=== PATIENT | male | born 1970 | race Caucasian/White ===

== ENCOUNTER 2016-07-30 00:30 | Inpatient (IN) | payer MEDICAID ==
[~2016-07-30] VITALS: Ht 188 cm; Wt 138.3 kg
[2016-07-30] VITALS (8 sets, daily range): BP systolic 151–175; BP diastolic 87–127; PULSE 78–110; RESP 16–25; TEMP 97.4–98.9; O2SAT 92–96
[2016-07-30] MEDS ORDERED: ASPIRIN 81 MG TAB.CHEW PO ONE (01:00)
[2016-07-30] MEDS ORDERED: SERT50TA12 PO (01:15)
[2016-07-30] MEDS ORDERED: METO50TA3 PO (01:15)
[2016-07-30] MEDS ORDERED: ATOR40TA68 PO (01:15)
[2016-07-30] MEDS ORDERED: HYDR-1189 PO (01:15)
[2016-07-30] MEDS ORDERED: CHOL100028 PO (01:15)
[2016-07-30] MEDS ORDERED: APIX5TAB PO (01:15)
[2016-07-30] MEDS ORDERED: OMEP40CA33 PO (01:15)
[2016-07-30 01:16] LABS: BASOPHILS # (AUTO) 0.1 K/uL (0.0-0.2); BASOPHILS % (AUTO) 0.6 % (0.0-2.0); EOSINOPHILS # (AUTO) 0.2 K/uL (0.0-0.4); EOSINOPHILS % (AUTO) 1.9 % (0.0-4.0); HEMATOCRIT 47.3 % (36-54); HEMOGLOBIN 15.8 g/dL (14.0-18.0); LYMPHOCYTES # (AUTO) 2.6 K/uL (1.0-5.5); LYMPHOCYTES % (AUTO) 23.4 % (20.5-51.5); MEAN CORPUSCULAR HEMOGLOBIN 28 pg (27-31); MEAN CORPUSCULAR HGB CONC 33 % (32-36); MEAN CORPUSCULAR VOLUME 84 fL (79.0-98.0); MONOCYTES # (AUTO) 0.7 K/uL (0.0-1.0); MONOCYTES % (AUTO) 6.6 % (1.7-9.3); NEUTROPHILS # (AUTO) 7.3 K/uL (1.8-7.7); NEUTROPHILS % (AUTO) 67.5 % (40.0-70.0); PLATELET COUNT (AUTO) 278 K/uL (130-430); RED BLOOD CELL COUNT(AUTO) 5.61 MIL/uL (4.2-6.2); RED CELL DISTRIBUTION WIDTH 13.5 % (9.0-15.0); WHITE BLOOD COUNT (AUTO) 10.9 K/uL (4.8-10.8)
[2016-07-30 01:20] LABS: CREATININE 1.2 mg/dL (0.55-1.30); POTASSIUM 3.4 mmol/L (3.5-5.1)
[2016-07-30 01:26] LABS: TOTAL BILIRUBIN 0.6 mg/dL (0.0-1.0)
[2016-07-30 01:45] LABS: INR 4.2 (0.80-1.20); PROTHROMBIN TIME 47.4 SECS (9.5-12.5)
[2016-07-30] MEDS ORDERED: FUROSEMIDE 20 MG TABLET PO ONE (02:15)
[2016-07-30] MEDS ORDERED: AZITHROMYCIN 500 MG in NS 250 ML IV ONE (02:15)
[2016-07-30] MEDS ORDERED: cefTRIAXone 1 GM in D5W 50 ML IV ONE (02:15)
[2016-07-30] MEDS ORDERED: LEVOFLOXACIN 500 MG/D5W 100 ML IV ONE ×2 (02:30→03:54)
[2016-07-30] MEDS ORDERED: cefTRIAXone 1 GM VIAL ONE (02:40)
[2016-07-30] MEDS ORDERED: AZITHROMYCIN 500 MG/VIAL (ZITHROMAX) IV ONE (02:40)
[2016-07-30] MEDS: ALBUTEROL SULFATE 0.083% 2.5 MG/3 ML VIAL.NEB INH SCH ×6 (06:08→23:00)
[2016-07-30] MEDS ORDERED: CHOLECALCIFEROL (VITAMIN D3) 2,000 UNIT TABLET PO ONE (10:15)
[2016-07-30] MEDS ORDERED: SERTRALINE HCL 50 MG TABLET PO ONE (10:15)
[2016-07-30] MEDS ORDERED: APIXABAN 2.5 MG TABLET PO ONE (10:15)
[2016-07-30] MEDS ORDERED: ATORVASTATIN 20 MG TABLET PO ONE (10:15)
[2016-07-30] MEDS ORDERED: METOPROLOL TARTRATE 50 MG TABLET PO ONE (10:15)
[2016-07-30] MEDS ORDERED: amLODIPine BESYLATE 10 MG TABLET PO ONE (14:00)
[2016-07-30] MEDS: cloNIDine HCL 0.1 MG TABLET PO PRN (17:39)
[2016-07-30] MEDS: APIXABAN 2.5 MG TABLET PO SCH (21:12)
[2016-07-30] MEDS: LEVOFLOXACIN 500 MG/D5W 100 ML IV SCH (21:13)
[2016-07-31] VITALS (8 sets, daily range): BP systolic 136–163; BP diastolic 88–123; PULSE 66–109; RESP 17–18; TEMP 96.9–98.7; O2SAT 94–100
[2016-07-31] MEDS: cloNIDine HCL 0.1 MG TABLET PO PRN ×2 (01:44→10:39)
[2016-07-31] MEDS: ALBUTEROL SULFATE 0.083% 2.5 MG/3 ML VIAL.NEB INH SCH ×6 (03:00→22:55)
[2016-07-31 07:46] LABS: BASOPHILS % (AUTO) 0.3 % (0.0-2.0); EOSINOPHILS # (AUTO) 0.2 K/uL (0.0-0.4); EOSINOPHILS % (AUTO) 1.8 % (0.0-4.0); HEMATOCRIT 40.4 % (36-54); HEMOGLOBIN 13.7 g/dL (14.0-18.0); LYMPHOCYTES # (AUTO) 1.8 K/uL (1.0-5.5); LYMPHOCYTES % (AUTO) 21.1 % (20.5-51.5); MEAN CORPUSCULAR HEMOGLOBIN 29 pg (27-31); MEAN CORPUSCULAR HGB CONC 34 % (32-36); MEAN CORPUSCULAR VOLUME 85 fL (79.0-98.0); MONOCYTES # (AUTO) 0.8 K/uL (0.0-1.0); MONOCYTES % (AUTO) 9.6 % (1.7-9.3); NEUTROPHILS # (AUTO) 5.8 K/uL (1.8-7.7); NEUTROPHILS % (AUTO) 67.2 % (40.0-70.0); PLATELET COUNT (AUTO) 191 K/uL (130-430); RED BLOOD CELL COUNT(AUTO) 4.73 MIL/uL (4.2-6.2); RED CELL DISTRIBUTION WIDTH 13.5 % (9.0-15.0); WHITE BLOOD COUNT (AUTO) 8.6 K/uL (4.8-10.8)
[2016-07-31 08:54] LABS: CALCIUM 8.8 mg/dL (8.4-11.0); CREATININE 1.04 mg/dL (0.55-1.30); THYROID STIMULATING HORMONE 0.52 uIu/mL (0.36-3.74)
[2016-07-31] MEDS ORDERED: METOPROLOL TARTRATE 50 MG TABLET PO SCH ×2 (09:00→21:00)
[2016-07-31] MEDS: CHOLECALCIFEROL (VITAMIN D3) 2,000 UNIT TABLET PO SCH (10:32)
[2016-07-31] MEDS: APIXABAN 2.5 MG TABLET PO SCH ×2 (10:32→20:37)
[2016-07-31] MEDS: amLODIPine BESYLATE 10 MG TABLET PO SCH (10:34)
[2016-07-31] MEDS: SERTRALINE HCL 50 MG TABLET PO SCH (10:34)
[2016-07-31] MEDS: ATORVASTATIN 20 MG TABLET PO SCH (10:34)
[2016-07-31] MEDS: OMEPRAZOLE 20 MG CAPSULE.DR (PriLOSEC) PO SCH (10:35)
[2016-07-31] MEDS ORDERED: POTASSIUM CHLORIDE 20 MEQ TAB.PRT.SR PO ONE (13:45)
[2016-07-31] MEDS ORDERED: PHYTONADIONE 5 MG TABLET PO ONE (13:45)
[2016-07-31] MEDS ORDERED: FUROSEMIDE 40 MG TABLET PO ONE (13:45)
[2016-07-31] MEDS: METOPROLOL TARTRATE 50 MG TABLET PO SCH (20:34)
[2016-07-31] MEDS: LEVOFLOXACIN 500 MG/D5W 100 ML IV SCH (21:39)
[2016-07-31] MEDS ORDERED: ACETAMINOPHEN 325 MG TABLET PO PRN (23:30)
[2016-08-01 00:12] VITALS: BP 139/89; PULSE 82; RESP 20; TEMP 97.6; O2SAT 96
[2016-08-01] MEDS: ALBUTEROL SULFATE 0.083% 2.5 MG/3 ML VIAL.NEB INH SCH ×3 (03:00→11:00)
[2016-08-01 04:08] VITALS: BP 124/83; PULSE 69; RESP 20; TEMP 97.7; O2SAT 98
[2016-08-01 07:20] LABS: INR 1.8 (0.80-1.20); PROTHROMBIN TIME 20.1 SECS (9.5-12.5)
[2016-08-01 08:06] VITALS: BP 138/96; PULSE 90; RESP 16; TEMP 97.5; O2SAT 97
[2016-08-01 08:10] VITALS: BP 138/96; PULSE 90
[2016-08-01] MEDS: APIXABAN 2.5 MG TABLET PO SCH (08:48)
[2016-08-01] MEDS: ATORVASTATIN 20 MG TABLET PO SCH (08:52)
[2016-08-01] MEDS: METOPROLOL TARTRATE 50 MG TABLET PO SCH (08:54)
[2016-08-01] MEDS: OMEPRAZOLE 20 MG CAPSULE.DR (PriLOSEC) PO SCH (08:55)
[2016-08-01] MEDS: amLODIPine BESYLATE 10 MG TABLET PO SCH (08:55)
[2016-08-01] MEDS: CHOLECALCIFEROL (VITAMIN D3) 2,000 UNIT TABLET PO SCH (08:56)
[2016-08-01] MEDS: SERTRALINE HCL 50 MG TABLET PO SCH (08:56)
[2016-08-01] MEDS ORDERED: FUROSEMIDE 40 MG TABLET PO SCH (09:00)
[2016-08-01] MEDS ORDERED: POTASSIUM CHLORIDE 20 MEQ/PKT PACKET PO SCH (09:00)
[2016-08-01 11:01] VITALS: BP 137/73; PULSE 78; RESP 16; TEMP 97.1; O2SAT 95
[2016-08-01] MEDS ORDERED: LEVO500T20 PO (12:16)
[2016-08-01] MEDS ORDERED: FURO-150 PO (12:16)
[2016-08-01] MEDS ORDERED: POTA-118 PO (12:18)
[2016-08-01] MEDS ORDERED: METO-442 PO (12:19)
[2016-08-01] MEDS ORDERED: NOR10 PO (12:19)
[2016-08-01] MEDS ORDERED: AMLO2.5T2 PO (12:23)
[2016-08-01] MEDS ORDERED: POTASSIUM CHLORIDE 20 MEQ TAB.PRT.SR PO ONE (13:15)
[2016-08-01] MEDS ORDERED: LACTOBACILLUS RHAMNOSUS GG 1 CAP CAPSULE PO SCH (21:00)
[2016-08-02] MEDS ORDERED: POTASSIUM CHLORIDE 20 MEQ TAB.PRT.SR PO SCH (09:00)
== END 2016-08-01 12:50 | disposition home or self-care (01) | DRG 201 ==
LOC: SED 00:30 → EDBD 00:30 → STU 02:16
PROVIDERS: ADMIT Internal Medicine Hospice and Palliative Medicine; ATTEND Internal Medicine Hospice and Palliative Medicine
DX: I48.0 Paroxysmal atrial fibrillation (principal); J18.9 Pneumonia, unspecified organism; D68.69 Other thrombophilia; I11.0 Hypertensive heart disease with heart failure; I50.40 Unspecified combined systolic (congestive) and diastolic (congestive) heart failure; E78.5 Hyperlipidemia, unspecified; F70 Mild intellectual disabilities; R61 Generalized hyperhidrosis; F32.9 Major depressive disorder, single episode, unspecified; K21.9 Gastro-esophageal reflux disease without esophagitis; E11.9 Type 2 diabetes mellitus without complications
CPT/HCPCS: 36415; 71010; 71020-TC; 80048; 80053; 83605; 83880; 84443-TC; 84484; 85025; 85610-TC; 85730-TC; 87040-TC; 93005; 93306; 94640; 94760; 96365; 96368; 99285; J0456; J0696; J1956; J7040

== ENCOUNTER 2016-10-01 14:38 | Emergency (ER) | payer MEDICAID ==
[~2016-10-01] VITALS: Ht 188 cm; Wt 137.9 kg
[~2016-10-01 14:38] MED LIST: AMLO2.5T2 PO; APIX5TAB PO; ATOR40TA68 PO; CHOL100028 PO; FURO-150 PO; HYDR-1189 PO; LEVO500T20 PO; METO-442 PO; METO50TA3 PO; NOR10 PO; OMEP40CA33 PO; POTA-118 PO; SERT50TA12 PO
[2016-10-01 14:40] VITALS: BP 162/105; PULSE 76; RESP 18; TEMP 97.2; O2SAT 99
--- NOTE | 2016-10-01 16:30 | NUR ---
ED MD Dean at bedside for medical examination.
--- NOTE | 2016-10-01 16:35 | NUR ---
PT brought to ED accompanied by customer care professional. button riveter states PT has had elevated blood pressure since this morning. Brought in for evaluation. PT denies chest pain, SOB, N/V, Diaphoresis. Hx. of Hypertension, mental deficit. PT states he is in no pain with no other complaints at this time. Will continue to monitor.
[2016-10-01] MEDS ORDERED: hydrALAZINE HCL 20 MG/ML VIAL IVP ONE ×3 (17:00→18:45)
--- NOTE | 2016-10-01 17:10 | NUR ---
Medications administered. PT tolerated well. Will continue to monitor.
--- NOTE | 2016-10-01 17:30 | NUR ---
PT offered urinal at bedside.
--- NOTE | 2016-10-01 18:11 | NUR ---
PT resting in bed, no acute distress noted. Will continue to monitor
--- NOTE | 2016-10-01 18:50 | NUR ---
Medications administered per MD order. PT tolerated well. Will continue to monitor.
--- NOTE | 2016-10-01 19:00 | NUR ---
PT sitting up in bed. Appears in no acute distress. Will continue to monitor.
--- NOTE | 2016-10-01 19:10 | NUR ---
Report given to Kandi POZO Will assume care.
[2016-10-01 20:06] VITALS: BP 167/101; PULSE 98; RESP 18; TEMP 97.2; O2SAT 99
--- NOTE | 2016-10-01 20:06 | NUR ---
Patient given written and verbal discharge instructions and verbalizes understanding. ER MD VELASCO discussed with patient the results and treatment provided. Patient in stable condition. ID arm band removed. IV catheter removed intact and dressing applied, no active bleeding. Patient educated on pain management and to follow up with PMD. Pain Scale 0/10. Opportunity for questions provided and answered.
== END 2016-10-01 20:06 | disposition home or self-care (01) ==
LOC: SED 14:38
DX: I10 Essential (primary) hypertension (principal); Z86.79 Personal history of other diseases of the circulatory system; E78.00 Pure hypercholesterolemia, unspecified; Z79.899 Other long term (current) drug therapy
CPT/HCPCS: 96374; 96376; 99284; J0360